=== PATIENT | female | born 1945 | race Caucasian/White ===

== ENCOUNTER 2020-01-19 09:55 | Emergency (ER) | payer OTHER ==
[~2020-01-19] VITALS: Ht 160 cm; Wt 61.4 kg
[~2020-01-19 09:55] MED LIST: AMLO5TAB9 PO; CETI10TA59 PO; LEVO88TA4 PO; LOSA-88 PO
[2020-01-19] MEDS ORDERED: TICA60TA PO (10:08)
[2020-01-19] MEDS ORDERED: CALC-911 PO (10:08)
[2020-01-19] MEDS ORDERED: METO25XL PO (10:08)
[2020-01-19] MEDS ORDERED: AMLO10TA7 PO (10:08)
[2020-01-19] MEDS ORDERED: ACETAMINOPHEN 500 MG TABLET PO ONE (11:15)
[2020-01-19] MEDS ORDERED: LIDOCAINE 5% TRANSDERMAL PATCH TD ONE (11:15)
[2020-01-19 13:17] VITALS: BP 131/60
== END 2020-01-19 13:21 | disposition home or self-care (01) ==
LOC: EMS 09:57
DX: M54.5 Low back pain (principal); F41.9 Anxiety disorder, unspecified; E78.00 Pure hypercholesterolemia, unspecified; I10 Essential (primary) hypertension; Z90.49 Acquired absence of other specified parts of digestive tract; Z90.710 Acquired absence of both cervix and uterus
CPT/HCPCS: 72100